=== PATIENT | female | born 1985 | race Two or more races ===

== ENCOUNTER 2017-04-18 00:48 | Emergency (ER) | payer SELFPAY ==
[~2017-04-18] VITALS: Ht 157.5 cm; Wt 77.1 kg
[2017-04-18 01:08] VITALS: BP 125/66
--- NOTE | 2017-04-18 03:13 | PHYS DOC ---
Past Medical History Past Medical History: Hypertension Past Surgical History: Tubal ligation Alcohol Use: Rarely Drug Use: None Adult General Chief Complaint Chief Complaint: KNEE INJURY HPI HPI 32-year-old female who reports no prior knee injury now complaining of left knee pain. Patient states she twisted her left knee yesterday and has had pain and swelling since that time. It hurts to walk move it and bear weight. No history of bone or bleeding problems patient is not on any anticoagulants by her description. Review of Systems Review of Systems Constitutional: Denies fever or chills [] Eyes: Denies change in visual acuity, redness, or eye pain [] HENT: Denies nasal congestion or sore throat [] Respiratory: Denies cough or shortness of breath [] Cardiovascular: No additional information not addressed in HPI [] GI: Denies abdominal pain, nausea, vomiting, bloody stools or diarrhea [] : Denies dysuria or hematuria [] Musculoskeletal: Denies back pain or joint pain [] Integument: Denies rash or skin lesions [] Neurologic: Denies headache, focal weakness or sensory changes [] Endocrine: Denies polyuria or polydipsia [] Current Medications Current Medications Current Medications Medications (Trade) Dose Ordered Sig/Jose Guadalupe Start Time Stop Time Status Last Admin Dose Admin Ketorolac Tromethamine (Toradol) 60 mg 1X ONCE 04/18/17 03:15 04/18/17 03:16 UNV Allergies Allergies Allergies Coded Allergies Type Severity Reaction Last Updated Verified Penicillins Allergy Intermediate 04/18/17 Yes Physical Exam Physical Exam Appearing patient in no acute distress. Mild soft tissue tenderness medial left knee no bony deformity. No ligamentous laxity. X-ray unremarkable. Neurovascularly intact distally soft compartments. Constitutional: Well developed, well nourished, no acute distress, non-toxic appearance. [] HENT: Normocephalic, atraumatic, bilateral external ears normal, oropharynx moist, no oral exudates, nose normal. [] Eyes: PERRLA, EOMI, conjunctiva normal, no discharge. [] Neck: Normal range of motion, no tenderness, supple, no stridor. [] Cardiovascular:Heart rate regular rhythm, no murmur [] Lungs & Thorax: Bilateral breath sounds clear to auscultation [] Abdomen: Bowel sounds normal, soft, no tenderness, no masses, no pulsatile masses. [] Skin: Warm, dry, no erythema, no rash. [] Back: No tenderness, no CVA tenderness. [] Extremities: No tenderness, no cyanosis, no clubbing, ROM intact, no edema. [] Neurologic: Alert and oriented X 3, normal motor function, normal sensory function, no focal deficits noted. [] Psychologic: Affect normal, judgement normal, mood normal. [] Current Patient Data Vital Signs Vital Signs Date Time Temp Pulse Resp B/P (MAP) Pulse Ox O2 Delivery O2 Flow Rate FiO2 04/18/17 01:08 98.1 68 18 100 Room Air 98.1 EKG EKG [] Radiology/Procedures Radiology/Procedures X-ray left knee no acute disease interpreted by me [] Course & Med Decision Making Course & Med Decision Making Pertinent Labs and Imaging studies reviewed. (See chart for details) Signs and symptoms consistent with left knee sprain. X-ray negative. Knee immobilizer applied. Patient were to follow up with PCP and Ortho as needed. She will take NSAIDs as needed [] Dragon Disclaimer Dragon Disclaimer This electronic medical record was generated, in whole or in part, using a voice recognition dictation system. Departure Departure Impression: Primary Impression: Left knee sprain Additional Impression: Left knee pain Disposition: HOME, SELF-CARE Condition: STABLE Referrals: NO PCP (PCP) Patient Instructions: Knee Sprain Additional Instructions: You have a knee sprain. Wear knee immobilizer until follow-up with your doctor for reevaluation and referral to orthopedics as needed. Rest ice elevate whenever possible. Remove 3 times a day for range of motion of your knee without bearing weight. If you're able to walk without pain that would be fine to use the knee immobilizer alone, but if you have pain and use crutches to take the weight off it as needed. Take ibuprofen 800 mg every 6 hours. Be sure to follow up as directed. Problem Qualifiers LUISA GALINDO MD Apr 18, 2017 03:13
[2017-04-18] MEDS ORDERED: KETOROLAC TROMETHAMINE 30 MG/ML INJ. IM ONE (03:30)
--- NOTE | 2017-04-18 08:14 | RAD ---
Exam performed: 3 views left knee. Clinical indication: Left knee pain, status post injury Date of Service: 04/18/17 Comparison:None available Findings: AP, oblique and lateral radiographs of the knee reveal the osseous structures to be intact and well aligned. The joint space is well-preserved. The articular margins are smooth. Evidence of calcific loose body or joint effusion is absent. Impression: Radiographically normal knee.
== END 2017-04-18 03:33 | disposition home or self-care (01) ==
LOC: ER 00:48
DX: S83.92XA Sprain of unspecified site of left knee, initial encounter (principal); I10 Essential (primary) hypertension; Z88.0 Allergy status to penicillin; X58.XXXA Exposure to other specified factors, initial encounter; Y93.89 Activity, other specified; Y92.89 Other specified places as the place of occurrence of the external cause; Y99.8 Other external cause status
CPT/HCPCS: 29505; 73562; 96372; 99284; J1885